=== PATIENT | female | born 1990 | race Caucasian/White ===

== ENCOUNTER → 2016-06-24 | Outpatient (CLI) | payer MEDICARE, MEDICAID ==
[~2016-06-24] MED LIST: MINO50TA PO; NF-NOR777T PO
--- NOTE | 2016-06-24 12:38 | Diagnostic Imaging Report ---
INDICATION: Anatomical survey. COMPARISON: None. DISCUSSION: Transabdominal sonographic evaluation of the gravid uterus was performed. Single live intrauterine at 19 weeks 4 days by sonographic measurements. gender is female. Biparietal diameter measures 4.47 cm. Head circumference measures 16.5 cm. Abdominal circumference measures 14.5 cm. Femur length measures 3.0 cm. EDC by today's ultrasound is 11/14/2016. heart rate measures 144-160 beats per minute. Estimated weight is 1102 grams. Normal amniotic fluid index measuring 15.6 cm. Placenta is located anteriorly with no placenta previa. presentation is transverse. There is good visualization of the stomach, kidneys, bladder, aorta, brain, extremities, spine, four-chamber heart, three-vessel cord and insertion. No abnormal adnexal mass or fluid. Impression: 1. Single live intrauterine at 19 weeks 4 days by sonographic measurements. 2. Normal anatomical survey. Dictated by: Dictated on workstation # [id number]
== END ==
LOC: RAD 09:05
PROVIDERS: ATTEND Family Medicine
DX: Z36 Encounter for antenatal screening of mother (principal)
CPT/HCPCS: 76805

== ENCOUNTER 2016-11-17 06:17 | Outpatient (CLI) | payer MEDICARE, MEDICAID ==
[~2016-11-17] VITALS: Ht 162.6 cm; Wt 122.3 kg
[2016-11-17 06:31] VITALS: BP 122/70
--- NOTE | 2016-11-17 07:30 | NUR ---
0715 pt states that she went to the restroom this morning and found a small amount of blood in the toilet afterward. 0725 There was no sign of blood observed by this RN during or immediately following SVE. Pt went to the to urinate after SVE and did not have any bleeding.
[2016-11-17 08:00] VITALS: BP 109/71
--- NOTE | 2016-11-17 08:15 | NUR ---
Pt discharged in good condition. Signs of labor reviewed with pt. Advised pt that she could be in the early phase of labor. Advised her to call or come back in if she felt it necessary. Pt left the OB unit ambulatory with her mother.
== END 2016-11-17 08:15 | disposition home or self-care (01) ==
LOC: OB 06:17 → OBGOP 06:17
PROVIDERS: ATTEND Family Medicine
DX: O48.0 Post-term pregnancy (principal); O46.93 Antepartum hemorrhage, unspecified, third trimester; Z3A.40 40 weeks gestation of pregnancy
CPT/HCPCS: 99202